=== PATIENT | female | born 1995 | race Asian ===

== ENCOUNTER 2019-04-10 00:11 | Emergency (ER) | payer SELFPAY ==
[~2019-04-10] VITALS: Ht 160 cm; Wt 54.4 kg
--- NOTE | 2019-04-10 00:23 | Emergency Room Report ---
History of Present Illness General Chief Complaint: Alcohol Intoxication Source: Patient, EMS Present Illness HPI This a 23-year-old female with no past medical history. She presents with complaint alcohol intoxication. According to EMS, she broke up with her boyfriend today. She was at the bar drinking and was found intoxicated at the lobby at the [facility]. She was vomiting. Bystander called 911. Patient denies any symptoms. No suicidal thoughts homicidal thought. Denies any other complaint. History is limited because of intoxication. Allergies: Coded Allergies: No Known Allergies (Unverified , 04/10/19) Patient History Past Medical History: none, see triage record, old chart reviewed Past Surgical History: none Pertinent Family History: none Social History: Denies: smoking Last Menstrual Period: unk Now: No Immunizations: other Reviewed Nursing Documentation: PMH: Agreed; PSxH: Agreed Review of Systems Eye: Denies: eye pain, blurred vision ENT: Denies: ear pain, nose congestion, throat swelling Respiratory: Denies: cough, shortness of breath Cardiovascular: Denies: chest pain, palpitations Gastrointestinal: Reports: nausea, vomiting; Denies: abdominal pain, diarrhea Musculoskeletal: Denies: back pain, joint pain Skin: Denies: rash Neurological: Denies: headache, numbness Endocrine: Denies: increased thirst, increased urine Hematologic/Lymphatic: Denies: easy bruising All Other Systems: negative except mentioned in HPI Physical Exam Vital Signs Date Time Temp Pulse Resp B/P (MAP) Pulse Ox O2 Delivery O2 Flow Rate FiO2 04/10/19 00:13 98.8 81 16 93/68 (76) 99 Room Air Vitals unremarkable Sp02 EP Interpretation: reviewed, normal General Appearance: well appearing, no apparent distress, alert, other - Intoxicated Head: normocephalic, atraumatic Eyes: bilateral eye PERRL, bilateral eye EOMI ENT: hearing grossly normal, normal pharynx Neck: full range of motion, supple, no meningismus Respiratory: chest non-tender, lungs clear, normal breath sounds Cardiovascular #1: regular rate, rhythm, no murmur Gastrointestinal: normal bowel sounds, non tender, no mass, no organomegaly, no bruit, non-distended Musculoskeletal: back normal, normal range of motion Psychiatric: mood/affect normal Medical Decision Making Diagnostic Impression: Primary Impression: Acute alcoholic intoxication Qualified Codes: F10.920 - Alcohol use, unspecified with intoxication, uncomplicated ER Course This a 23-year-old female presents with alcohol intoxication. No trauma to warrant x-ray or CT scan. She is now awake. Her best friend call a ride for her. I see no need for x-ray or CT scan. Last Vital Signs Date Time Temp Pulse Resp B/P (MAP) Pulse Ox O2 Delivery O2 Flow Rate FiO2 04/10/19 00:13 98.8 81 16 93/68 (76) 99 Room Air Status: improved Disposition: HOME, SELF-CARE Condition: Stable Patient Instructions: Alcohol Intoxication, [id number] Additional Instructions: Abstain from drinking to excess. Follow-up with your doctor in 7 days. Return if worse. Steve Downs MD Apr 10, 2019 00:23
[2019-04-10 00:30] VITALS: BP 93/68
--- NOTE | 2019-04-10 00:30 | NUR ---
ED Nurse Note: Patient brought in by ambulance RA 63 from [place] c/o ETOH, n/v. IV zofran given. Patient presented AAO x3, VSS at this time.
[2019-04-10 01:30] VITALS: BP 93/68
--- NOTE | 2019-04-10 01:30 | NUR ---
ER DISCHARGE NOTE: Patient is cleared to be discharged per ERMD, pt is aox4, on room air, with stable vital signs. pt was given dc and prescription instructions, pt was able to verbalize understanding, pt id band and iv site removed without complications. pt is able to ambulate with steady gait. pt took all belongings.
== END 2019-04-10 01:30 | disposition home or self-care (01) ==
LOC: EDBD 00:11 → EMR 00:28
DX: F10.920 Alcohol use, unspecified with intoxication, uncomplicated (principal)
CPT/HCPCS: 36415; 96361; 96374; 99284; G0480; J2405; J7030